=== PATIENT | male | born 1990 | race Caucasian/White ===

== ENCOUNTER 2016-12-22 13:43 | Emergency (ER) | payer OTHER ==
[2016-12-22 14:40] VITALS: BP 114/65
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
== END 2016-12-22 15:02 | disposition home or self-care (01) ==
LOC: UCCORT 13:43
DX: S30.810A Abrasion of lower back and pelvis, initial encounter (principal); L29.9 Pruritus, unspecified; Y84.8 Other medical procedures as the cause of abnormal reaction of the patient, or of later complication, without mention of misadventure at the time of the procedure; Y82.8 Other medical devices associated with adverse incidents; F17.210 Nicotine dependence, cigarettes, uncomplicated
CPT/HCPCS: 99212; G0463

== ENCOUNTER 2019-11-08 13:03 | Emergency (ER) | payer OTHER ==
[2019-11-08 13:44] VITALS: BP 107/74
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
== END 2019-11-08 14:54 | disposition home or self-care (01) ==
LOC: UCEAST 13:03
DX: S16.1XXA Strain of muscle, fascia and tendon at neck level, initial encounter (principal); S40.021A Contusion of right upper arm, initial encounter; S20.211A Contusion of right front wall of thorax, initial encounter; F17.210 Nicotine dependence, cigarettes, uncomplicated; V49.3XXA Car occupant (driver) (passenger) injured in unspecified nontraffic accident, initial encounter; Y92.9 Unspecified place or not applicable
CPT/HCPCS: 99212; G0463